=== PATIENT | male | born 1975 | race Asian ===

== ENCOUNTER 2019-08-15 01:32 | Emergency (ER) | payer OTHER ==
[~2019-08-15] VITALS: Ht 172.7 cm; Wt 70.0 kg
[2019-08-15] MEDS ORDERED: ACETAMINOPHEN 500 MG TABLET PO ONE (02:15)
[2019-08-15 05:42] VITALS: BP 124/76
== END 2019-08-15 05:45 | disposition home or self-care (01) ==
LOC: EMS 01:33
DX: S00.83XA Contusion of other part of head, initial encounter (principal); Y04.0XXA Assault by unarmed brawl or fight, initial encounter; Y93.89 Activity, other specified; Y92.89 Other specified places as the place of occurrence of the external cause; Y99.8 Other external cause status
CPT/HCPCS: 70450; 70486; 72125